=== PATIENT | female | born 1935 | race Caucasian/White ===

== ENCOUNTER 2019-12-16 14:45 | Observation (INO) | payer MEDICARE, OTHER ==
[~2019-12-16] VITALS: Ht 160 cm; Wt 100.3 kg
[2019-12-16 15:38] LABS: Troponin I <0.015 ng/mL (0.000-0.040)
[2019-12-16 15:41] LABS: Alanine Aminotransfer (ALT/SGP 17 U/L (12-78); Albumin, Blood 2.8 g/dL (3.4-5.0); Albumin/Globulin Ratio 0.7 (0.8-1.8); Alk Phos 109 U/L (50-136); Anion Gap 6 mmol/L (6-16); Aspartate Aminotrans (AST/SGOT 11 U/L (12-37); Bilirubin, Total 0.2 mg/dL (0.1-1.0); Blood Urea Nitrogen 21 mg/dL (8-24); Bun/Creatinine Ratio 23.7 (12.0-20.0); CO2, Blood 25 mmol/L (21-32); Calcium, Blood 8.1 mg/dL (8.5-10.1); Chloride, Blood 111 mmol/L (98-108); Creatinine, Blood 0.89 mg/dL (0.40-1.00); Globulin, Blood 3.9 g/dL (2.2-4.0); Glomerular Filtration Rate >60 (60-); Glucose, Blood 262 mg/dL (70-99); Potassium, Blood 4.1 mmol/L (3.5-5.5); Sodium, Blood 142 mmol/L (136-145); Total Protein, Blood 6.7 g/dL (6.4-8.2)
[2019-12-16 16:58] LABS: BASOPHILS ABSOLUTE AUTO 0.03 K/mm3 (0.00-0.23); BASOPHILS PERCENT AUTO 0 % (0-2); EOSINOPHILS PERCENT AUTO 1 % (0-6); Hematocrit 36.4 % (33.0-51.0); Hemoglobin 11.8 g/dL (11.5-16.0); IMMATURE GRAN ABSOLUTE AUTO 0.02 K/mm3 (0.00-0.10); IMMATURE GRAN PERCENT AUTO 0 % (0-1); LYMPHOCYTES ABSOLUTE AUTO 1.72 K/mm3 (0.84-5.20); LYMPHOCYTES PERCENT AUTO 20 % (21-46); MONOCYTES ABSOLUTE AUTO 1.29 K/mm3 (0.16-1.47); MONOCYTES PERCENT AUTO 15 % (4-13); Mean Corpuscular HGB 27.9 pg (26.0-34.0); Mean Corpuscular HGB Conc 32.4 g/dL (31.5-36.5); Mean Corpuscular Volume 86 fL (80-100); Mean Platelet Volume 10.7 fL (9.1-12.4); NEUTROPHILS ABSOLUTE AUTO 5.31 K/mm3 (1.96-9.15); NEUTROPHILS PERCENT AUTO 63 % (41-73); Platelet Count 190 K/mm3 (150-400); RDW Coefficient Variation 15.2 % (11.7-14.2); RDW Standard Deviation 47.8 fL (35.1-46.3); Red Blood Cell Count 4.23 M/mm3 (3.80-5.20); White Blood Cell Count 8.47 K/mm3 (4.00-11.30)
[2019-12-16] MEDS ORDERED: NEURONTIN300 MG PO (18:59)
[2019-12-16] MEDS ORDERED: Humalog100 UNIT/1 SC (19:01)
[2019-12-16] MEDS ORDERED: BASAGLAR K100 UNIT/1 SC (19:01)
[2019-12-16] MEDS ORDERED: LISINOPRIL2.5 MG PO (19:02)
[2019-12-16] MEDS ORDERED: ATOR10 PO (19:02)
[2019-12-16] MEDS ORDERED: ACET500 PO (19:16)
[2019-12-16] MEDS ORDERED: Aspir 8181 MG PO (19:30)
[2019-12-16 21:10] LABS: Creatine Kinase MB 1.9 ng/mL (0.0-3.6); Creatine Kinase MB Index 2.4 (0.0-4.0)
--- NOTE | 2019-12-17 00:18 | NUR ---
PT. ADMITTED FOR CP. CALLED HOSPITALIST FOR ORDER TO PLACE PT. ON TELEMETRY. ALSO NOTIFED PROVIDER PT. HAS BLE SWELLING AND PT. RECEIVING CONTINOUS IV FLUIDS @100ML/HR. RECEIVED ORDERS FOR TELE AND TO COMPLETE CURRENT 1X BAG OF FLUIDS.
[2019-12-17 02:26] LABS: BASOPHILS ABSOLUTE AUTO 0.03 K/mm3 (0.00-0.23); BASOPHILS PERCENT AUTO 1 % (0-2); EOSINOPHILS ABSOLUTE AUTO 0.11 K/mm3 (0.00-0.68); EOSINOPHILS PERCENT AUTO 2 % (0-6); Hematocrit 33.9 % (33.0-51.0); Hemoglobin 10.7 g/dL (11.5-16.0); IMMATURE GRAN ABSOLUTE AUTO 0.01 K/mm3 (0.00-0.10); IMMATURE GRAN PERCENT AUTO 0 % (0-1); LYMPHOCYTES PERCENT AUTO 33 % (21-46); MONOCYTES ABSOLUTE AUTO 0.74 K/mm3 (0.16-1.47); MONOCYTES PERCENT AUTO 12 % (4-13); Mean Corpuscular HGB 27.4 pg (26.0-34.0); Mean Corpuscular HGB Conc 31.6 g/dL (31.5-36.5); Mean Corpuscular Volume 87 fL (80-100); Mean Platelet Volume 10.5 fL (9.1-12.4); NEUTROPHILS ABSOLUTE AUTO 3.25 K/mm3 (1.96-9.15); NEUTROPHILS PERCENT AUTO 53 % (41-73); Platelet Count 177 K/mm3 (150-400); RDW Coefficient Variation 15.4 % (11.7-14.2); White Blood Cell Count 6.14 K/mm3 (4.00-11.30)
[2019-12-17 02:40] LABS: Anion Gap 4 mmol/L (6-16); Blood Urea Nitrogen 23 mg/dL (8-24); Bun/Creatinine Ratio 25.1 (12.0-20.0); CO2, Blood 28 mmol/L (21-32); Calcium, Blood 7.8 mg/dL (8.5-10.1); Chloride, Blood 112 mmol/L (98-108); Cholesterol 114 mg/dL (50-200); Creatinine, Blood 0.92 mg/dL (0.40-1.00); Glomerular Filtration Rate >60 (60-); Glucose, Blood 176 mg/dL (70-99); Magnesium, Blood 1.9 mg/dL (1.6-2.4); Potassium, Blood 4.1 mmol/L (3.5-5.5); Sodium, Blood 144 mmol/L (136-145); Triglycerides 140 mg/dL (30-160)
[2019-12-17 02:45] LABS: CPK Creatine Kinase 63 U/L (26-193); Creatine Kinase MB 1.9 ng/mL (0.0-3.6); Troponin I <0.015 ng/mL (0.000-0.040)
--- NOTE | 2019-12-17 04:39 | NUR ---
SHIFT SUMMARY- PT. ADMIT FROM ED. A&O, 1 ASSIST. PT. C/O NECK PAIN AND MILD CP. MEDICATED PER EMAR WITH GOOD RESULT. TROPS NEG. PT. ADVANCED TO ADA DIET PER ORDER. NPO THIS AM FOR SCHEDULED VQ SCAN. PT. ASLEEP DURING THE NIGHT. NO APPARENT DISTRESS NOTED. VSS. CALL LIGHT WITHIN REACH AND SIDE RAILS UP X2. WILL CONT TO MONITOR.
[2019-12-17 08:53] LABS: CPK Creatine Kinase 95 U/L (26-193); Creatine Kinase MB Index 2.1 (0.0-4.0); Troponin I <0.015 ng/mL (0.000-0.040)
--- NOTE | 2019-12-17 11:29 | NUR ---
Echocardiogram completed.
--- NOTE | 2019-12-17 17:35 | NUR ---
PT ALERT AND ORIENTED X4. PT WAS ABLE TO GET UP TODAY WITH 1 TO 2 ASSISTS USING FWW. PT CHEST PAIN DECREASED & CONTROLLED AND MEDICATED BY TYLENOL X1. PT HAD AN ECHO AND VQ SCAN TODAY. PT HAS BILATERAL LOWER EXTREMITIES SWELLING; PT ALSO HAS WOUND ON LEFT LOWER LEG WITH DRESSING & INTACT, LEFT ARM IV IS INTACT.
--- NOTE | 2019-12-18 05:24 | NUR ---
SHIFT SUMMARY ASSUMED CARE OF PT AT 1900. PT IS A/OX4, DENIES N/T IN EXTREMITES. HEART SOUNDS REGULAR, TELE SHOWS SINUS RHYTHMN, DENIES CP AT THIS TIME BUT STATES SHE HAS A PAIN IN HER L SIDE. LUNG SOUNDS DIMINISHED, DENIES SOB. PT IS 1P SBA TO COMMODE, PT STATES SHE IS AT HER BASELINE. URINE CLEAR AND YELLOW. NO ACUTE EVENTS DURING THE NIGHT. PT SLEPT MOST OF THE NIGHT. CALL LIGHT IN REACH, BED IN LOWEST POSTION, WILL CONTINUE TO MONITOR UNTIL DAYSHIFT NURSE ARRIVES.
[2019-12-18] MEDS ORDERED: TUMS500 MG PO (10:43)
[2019-12-18] MEDS ORDERED: MAGNESIUM OXID500 MG PO (10:44)
[2019-12-18] MEDS ORDERED: ONDA4ODT MM (10:45)
[2019-12-18] MEDS ORDERED: NITR.4SL SL (10:45)
[2019-12-18] MEDS ORDERED: METO25 PO (10:45)
[2019-12-18] MEDS ORDERED: PANT20 PO (10:46)
[2019-12-18] MEDS ORDERED: PRED20 PO (10:46)
[2019-12-18] MEDS ORDERED: HYDACE25S PR (10:49)
--- NOTE | 2019-12-18 11:10 | NUR ---
PATIENT D/C'D VIA [employer]. PATIENT TO MEET FAMILY AT [place] [id number] AND [employer] TO PAY FOR THE TAXI. RX MEDICATIONS FAXED TO [facility]. DC INSTRUCTIONS AND EDUCATION DISCUSSED WITH PATIENT AND COPY PROVIDED. PATIENT DENIES ANY FURTHER QUESTIONS OR CONCERNS.
== END 2019-12-18 11:10 | disposition home or self-care (01) ==
LOC: ER 14:45 → MEDS 14:46
PROVIDERS: Emergency Medicine; ADMIT Family Medicine
DX: R07.9 Chest pain, unspecified (principal); R93.5 Abnormal findings on diagnostic imaging of other abdominal regions, including retroperitoneum; E11.9 Type 2 diabetes mellitus without complications; R79.89 Other specified abnormal findings of blood chemistry; R53.1 Weakness; K21.9 Gastro-esophageal reflux disease without esophagitis; E78.5 Hyperlipidemia, unspecified; I10 Essential (primary) hypertension; Z66 Do not resuscitate; Z88.6 Allergy status to analgesic agent; Z91.041 Radiographic dye allergy status; Z79.4 Long term (current) use of insulin; Z79.899 Other long term (current) drug therapy; Z79.82 Long term (current) use of aspirin
CPT/HCPCS: 36415; 71045; 76705; 78580; 80048; 80053; 82465; 82550; 82553; 82947; 83735; 83880; 84443; 84478; 84484; 85025; 85379; 93005; 93010; 93306; 93970; 96374; 97112; 97162; 97166; 97530; 99285-25; A9270; A9270-GY; A9540; C9113; J1650; J2270; J2405; J3010; J7030; J7512